=== PATIENT | female | born 1990 | race Caucasian/White ===

== ENCOUNTER 2018-05-24 01:55 | Observation (INO) | payer OTHER ==
[2018-05-24 02:16] LABS: PLATELET COUNT 446 10^3/uL (150-400)
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
[2018-05-24] MEDS ORDERED: LIDOCAINE 2% JELLY 20 ML (UROJECT) ONE (03:01)
[2018-05-24] MEDS ORDERED: LIDOCAINE 2% JELLY 20 ML (UROJECT) UR ONE (03:07)
[2018-05-24] MEDS ORDERED: OXYCODONE/APAP 5/325 TAB PO PRN (05:28)
[2018-05-24] MEDS ORDERED: ONDANSETRON 4 MG/2 ML VIAL IVP PRN (05:28)
[2018-05-24] MEDS ORDERED: HYDROmorphONE/DILAUDID 1 MG/ML INJ IVP PRN (05:28)
[2018-05-24] MEDS ORDERED: D5W 1/2 NS W/ 20 KCl/L 1,000 ML IV SCH (05:30)
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
[2018-05-24] MEDS: ACETAMINOPHEN 325 MG TAB PO PRN ×3 (05:56→21:32)
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
[2018-05-24] MEDS ORDERED: NS W/ 20 KCl/L 1,000 ML IV SCH (13:30)
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
[2018-05-24] MEDS: PHENAZOPYRIDINE HCL 200 MG TAB PO SCH (18:35)
[2018-05-24] MEDS: SULFAMETHOX/TMP 800/160 MG 1 TAB PO SCH (19:08)
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
[2018-05-25 08:31] VITALS: BP 98/68
[2018-05-25] MEDS: ACETAMINOPHEN 325 MG TAB PO PRN (09:26)
[2018-05-25] MEDS: PHENAZOPYRIDINE HCL 200 MG TAB PO SCH (09:27)
[2018-05-25] MEDS: SULFAMETHOX/TMP 800/160 MG 1 TAB PO SCH (09:27)
[2018-05-25] MEDS ORDERED: ONDANSETRON DISINTEGRATING 4 MG TAB PO PRN (10:33)
[2018-05-25] MEDS ORDERED: BACITRACIN OINTMENT 1 PACKET TP ONE (10:49)
--- NOTE | 2018-05-25 13:04 | ASMTDCNOTE ---
Case Management Discharge Discharge Order Complete? Answers: Yes Patient to Obtain Answers: Independently Medications Transportation Arranged Answers: Family/Friends Family Notified Answers: Yes Notes: was with patideloris t in the room Discharge Comments Notes: Patient is d'cing today. She plans to stay with friends since she just filed for divorce from her . Patient states she has many friends in the climbing community and they tend to be "mellow' quiet" people and will understand her need for a low stim environment. Patient did need a PCP and an appointment was made with [facility]. Patient will see Dr. Hurley on 05-27-18 at 11:[address] Bell's office wants patient to call them direct to make an appointment for followup in 2-3 weeks. No further needs. Date Signed: 05/25/2018 01:03 PM Electronically Signed By:Anahy Felix LCSW
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
== END 2018-05-25 12:55 | disposition home or self-care (01) ==
LOC: EDUNIT# → INTOOBSV 03:34 → F2N 05:06
PROVIDERS: ADMIT Surgery; ATTEND Surgery
DX: S06.5X0A Traumatic subdural hemorrhage without loss of consciousness, initial encounter (principal); S80.812A Abrasion, left lower leg, initial encounter; S30.810A Abrasion of lower back and pelvis, initial encounter; V48.1XXA Car passenger injured in noncollision transport accident in nontraffic accident, initial encounter; F10.929 Alcohol use, unspecified with intoxication, unspecified; R40.2412 Glasgow coma scale score 13-15, at arrival to emergency department; N39.0 Urinary tract infection, site not specified
CPT/HCPCS: 70450; 71045; 72125; 72131; 92523; 96374; 96375; 97161; 97165; 97535; 99285; G0378; G0480; J2405

== ENCOUNTER → 2018-05-27 | Outpatient (CLI) | payer OTHER | LOC: FIMAGING 12:14 | PROVIDERS: ATTEND Family Medicine | DX: S32.2XXA Fracture of coccyx, initial encounter for closed fracture (principal); M53.3 Sacrococcygeal disorders, not elsewhere classified ==

== ENCOUNTER → 2018-11-21 | Outpatient (CLI) | payer MEDICAID ==
[~2018-11-21] MED LIST: GADOBUTROL 10 ML VIAL IVP ONE
== END ==
LOC: FIMAGING 13:50
PROVIDERS: ATTEND Family Medicine
DX: S06.5X9A Traumatic subdural hemorrhage with loss of consciousness of unspecified duration, initial encounter (principal)
CPT/HCPCS: A9585